=== PATIENT | female | born 1990 | race Caucasian/White ===

== ENCOUNTER → 2017-03-22 | Outpatient (CLI) | payer OTHER ==
[~2017-03-22] MED LIST: ACYC-113 PO; OXYC-302 PO
== END | disposition home or self-care (01) ==
LOC: CFH 12:26
PROVIDERS: ATTEND Surgery
DX: N63.10 Unspecified lump in the right breast, unspecified quadrant (principal); Z88.1 Allergy status to other antibiotic agents

== ENCOUNTER 2017-07-26 09:33 | Day surgery (SDC) | payer OTHER ==
[~2017-07-26] VITALS: Ht 177.8 cm; Wt 71.0 kg
[2017-07-26] MEDS ORDERED: LIDOCAINE 1%, 20ML ONE (10:30)
[2017-07-26] MEDS ORDERED: SODIUM BICARBONATE 4.0%, 5ML ONE (10:30)
[2017-07-26] MEDS ORDERED: BUPIVACAINE/PF 0.25% ONE (11:28)
[2017-07-26] MEDS ORDERED: EPINEPHRINE 1 MG/ML, 1ML ONE (11:29)
[2017-07-26] MEDS ORDERED: MIDAZOLAM 1 MG/ML, 2ML ONE (11:43)
[2017-07-26] MEDS ORDERED: FENTANYL PF 250 MCG/5ML ONE (11:43)
[2017-07-26] MEDS ORDERED: PROPOFOL 10 MG/ML, 20ML ONE (11:44)
[2017-07-26] MEDS ORDERED: DEXAMETHASONE 4 MG/ML, 1ML ONE ×2 (11:46)
[2017-07-26] MEDS ORDERED: LACTATED RINGERS 1,000 ML IV SCH (12:00)
[2017-07-26] MEDS ORDERED: LIDOCAINE-MPF 1%, 2ML INFIL ONE (12:00)
[2017-07-26 12:05] VITALS: BP 123/85
[2017-07-26] MEDS ORDERED: ROCURONIUM 10MG/ML,5ML ONE (12:16)
[2017-07-26] MEDS ORDERED: NEOSTIGMINE 1 MG/ML, 10ML ONE (12:17)
[2017-07-26] MEDS ORDERED: GLYCOPYRROLATE 0.4 MG/2 ML, 2ML ONE (12:17)
[2017-07-26] MEDS ORDERED: CEFAZOLIN 1,000 MG ONE (12:27)
[2017-07-26] MEDS ORDERED: LABETALOL 5MG/ML, 20ML IV PRN (12:30)
[2017-07-26] MEDS ORDERED: OXYcodone 5 MG/5 ML ORAL.SOL UDC PO PRN (12:30)
[2017-07-26] MEDS ORDERED: PROMETHAZINE 12.5 MG SUPP PR PRN (12:30)
[2017-07-26] MEDS ORDERED: ACETAMINOPHEN 500 MG TABLET PO ONE (12:30)
[2017-07-26] MEDS ORDERED: hydrALAzine 20 MG/ML, 1ML IV PRN (12:30)
[2017-07-26] MEDS ORDERED: HYDROmorphone 1 MG/ML, 1ML IV PRN (12:30)
[2017-07-26] MEDS ORDERED: MORPHINE SULFATE 4 MG/ML, 1ML IVPush PRN (12:30)
[2017-07-26] MEDS ORDERED: FENTANYL PF 100 MCG/2ML IV PRN (12:30)
[2017-07-26] MEDS ORDERED: SCOPOLAMINE PATCH, 1.5MG PATCH.TD72 TD ONE (12:30)
[2017-07-26] MEDS ORDERED: ONDANSETRON ODT 8 MG PO PRN (12:30)
[2017-07-26] MEDS ORDERED: ONDANSETRON ODT 8 MG PO ONE (12:30)
[2017-07-26] MEDS ORDERED: PROMETHAZINE 25 MG SUPP PR PRN (12:30)
[2017-07-26] MEDS ORDERED: PROMETHAZINE 25 MG/ML, 1ML IV PRN (12:30)
[2017-07-26] MEDS ORDERED: MEPERIDINE/PF 25MG/0.5ML IVPush PRN (12:30)
[2017-07-26] MEDS ORDERED: BUPIVACAINE/PF-EPI 0.25% 1:200K IM ONE (12:53)
[2017-07-26] MEDS ORDERED: OXYcodone 5 MG/5 ML ORAL.SOL UDC ONE (13:29)
== END 2017-07-26 14:50 ==
LOC: SDC 09:33 → EDSTATUS 12:30 → OUT 14:50
PROVIDERS: ATTEND Surgery
DX: N64.9 Disorder of breast, unspecified (principal); I10 Essential (primary) hypertension; Z72.89 Other problems related to lifestyle; Z88.8 Allergy status to other drugs, medicaments and biological substances
CPT/HCPCS: 19125; 19285; 81025; 88305; J0171; J0690; J1100; J2250; J2704; J2710; J3010; J3490; Q0162

== ENCOUNTER → 2018-03-13 | Outpatient (CLI) | payer OTHER | END | disposition home or self-care (01) | LOC: CFH 09:30 | PROVIDERS: ATTEND Family Medicine | DX: R05 Cough (principal) | CPT/HCPCS: 71046 ==